=== PATIENT | male | born 1955 | race Caucasian/White ===

== ENCOUNTER 2018-05-24 07:44 | Day surgery (SDC) | payer OTHER ==
[2018-03-31 15:20] VITALS: BMI 31.0
[~2018-05-24 07:44] MED LIST: LACTATED RINGERS 1,000 ML IV SCH; LIDOCAINE 1% 20 ML VIAL (10MG/ML) FOR IV START INTRADERMA PRN
[2018-05-24 08:24] VITALS: RESP 16; TEMP 97.2
[2018-05-24 08:32] LABS: Glucose,Whole Blood 149 mg/dL (75-99)
[2018-05-24] MEDS ORDERED: LIDOCAINE 1% INJ 10MG/ML (20 ML MDV) ONE (08:35)
[2018-05-24] MEDS ORDERED: PROPOFOL 10 MG/ML 20 ML VIAL IV ONE (08:35)
--- NOTE | 2018-05-24 08:54 | P.PCN ---
Date of Procedure: 05/24/18 Procedure(s) Performed: BRIEF HISTORY: Patient is a 62-year-old pleasant white male, scheduled for an elective colonoscopy as a part of screening for colorectal neoplasia. PROCEDURE PERFORMED: Colonoscopy with snare polypectomy PREOPERATIVE DIAGNOSIS: Screening for colon cancer. IV sedation per Anesthesia. PROCEDURE: After informed consent was obtained, the patient, was brought into the endoscopy unit. IV sedation was administered by Anesthesia under continuous monitoring. Digital rectal examination was normal. Initially the Olympus CF- 160 flexible video colonoscope was then inserted in the rectum, gradually advanced into the cecum without any difficulty. Careful examination was performed as the scope was gradually being withdrawn. Ileocecal valve and the appendiceal orifice were visualized and appeared normal. Prep was excellent. Mucosa of the cecum appeared normal. In the transverse colon there was a 5 mm polyp that was removed by snare polypectomy., In the descending colon there was a #5 mm polyp that was removed by snare polypectomy. In the sigmoid colon there were 2 polyps measuring 3 mm and 5 and admitted is both of which were removed by snare polypectomy. Rest of the descending colon, sigmoid colon, and rectum appeared normal. Retroflexion was performed in the rectum and no lesions were seen. The patient tolerated the procedure well. IMPRESSION: 5 mm transverse colon polyp status post polypectomy 5 mm 2 descending colon polyps status post polypectomy 3 mm and 5 mm sigmoid colon polyp status post polypectomy RECOMMENDATIONS: Findings of this examination were discussed with the patient as well as his family. He was advised to follow with the biopsy results. If the biopsy shows adenoma, he can have a repeat colonoscopy in 3 years.
[2018-05-24 09:15] VITALS: BP 130/88; PULSE 77
[2018-05-24 09:20] LABS: Glucose,Whole Blood 147 mg/dL (75-99)
== END 2018-05-24 09:44 | disposition home or self-care (01) ==
LOC: ORWHC2ENDO 07:44
PROVIDERS: ATTEND Internal Medicine Gastroenterology
DX: Z12.11 Encounter for screening for malignant neoplasm of colon (principal); D12.2 Benign neoplasm of ascending colon; D12.3 Benign neoplasm of transverse colon; K63.5 Polyp of colon; E11.9 Type 2 diabetes mellitus without complications; E78.5 Hyperlipidemia, unspecified; F17.210 Nicotine dependence, cigarettes, uncomplicated; Z79.4 Long term (current) use of insulin; Z79.899 Other long term (current) drug therapy
CPT/HCPCS: 88305; 45385; J2001; J2704

== ENCOUNTER → 2020-06-26 | Outpatient (CLI) | payer OTHER ==
--- NOTE | 2020-06-26 12:59 | US ---
EXAMINATION TYPE: US abdomen complete DATE OF EXAM: 06/26/2020 COMPARISON: NONE CLINICAL HISTORY: ABN LFT's R94.5. Abnormal LFT's, GB removed EXAM MEASUREMENTS: Liver Length: 18.9 cm CBD: 0.7 cm Spleen: 10.6 cm Right Kidney: 10.2 x 4.8 x 5.7 cm Left Kidney: 11.2 x 6.1 x 5.2 cm Pancreas: wnl, tail obscured by overlying bowel gas Liver: Enlarged, heterogeneous, difficult to penetrate Gallbladder: Surgically absent Evidence for sonographic Prasad's sign: No CBD: wnl Spleen: wnl Right Kidney: wnl Left Kidney: Hypoechoic lesion mid= 1.3 x 1.3 x 1.0 cm Upper IVC: Difficult to visualize Abd Aorta: Obscured by overlying bowel gas The intrahepatic portion of the IVC and proximal abdominal aorta are within normal limits. Common bi le duct is unremarkable. The visualized portions of the pancreas are homogenous. The spleen is unre markable. Kidneys are symmetric and free of hydronephrosis. No renal lesions are seen. IMPRESSION: Abdominal wall underlying fatty hepatic infiltration.
== END | disposition home or self-care (01) ==
LOC: RADUSWWP 12:20
DX: K76.0 Fatty (change of) liver, not elsewhere classified (principal)
CPT/HCPCS: 76700

== ENCOUNTER → 2020-06-26 | Outpatient (CLI) | payer OTHER ==
--- NOTE | 2020-06-26 14:01 | CTL ---
EXAMINATION TYPE: CT Low Dose Lung DATE OF EXAM ORDERED: 06/26/2020 HISTORY: 64-year-old male Personal history of tobacco use. Lung cancer screening CT DLP: [address] CTDI: 2.33 mGy Automated exposure control for dose reduction was used. SCREENING VISIT: Baseline COMPARISON: None TECHNIQUE: Low dose computed tomography scan was performed through the chest at 1 mm thick sections a nd reconstructed images in the coronal and sagittal plane. CT DIAGNOSTIC QUALITY: Satisfactory FINDINGS: Heart normal size without pericardial effusion. Some scattered three-vessel coronary calcifications a re present. Aorta normal caliber with bovine configuration to the aortic arch and additional direct takeoff of a nondominant left vertebral artery directly from the aortic arch. No thoracic lymphadenopathy by CT size criteria. Mild diffuse bronchial wall thickening. Mild hazy dependent atelectasis. No consolidation or pleural effusion. No suspicious pulmonary nodule or mass. Visualized upper abdomen shows no gross abnormality. Extreme posterior costophrenic angles are exclud ed from view. Bones: Some degenerative changes at the right shoulder. Anterior endplate spondylosis lower thoracic spine. IMPRESSION: 1. LungRADS 1 - negative. No suspicious pulmonary nodule or mass. 2. Mild diffuse bronchial wall thickening can be seen with bronchitis or chronic asthma. 3. Mild three-vessel coronary artery calcifications. RECOMMENDATION: 1. Continue annual low-dose lung cancer screening CT. 2. Smoking cessation.
== END | disposition home or self-care (01) ==
LOC: RADCTMAIN 13:14
DX: Z12.2 Encounter for screening for malignant neoplasm of respiratory organs (principal); J98.4 Other disorders of lung; I25.10 Atherosclerotic heart disease of native coronary artery without angina pectoris; F17.210 Nicotine dependence, cigarettes, uncomplicated
CPT/HCPCS: 71271

== ENCOUNTER → 2021-12-18 | Outpatient (CLI) | payer OTHER ==
--- NOTE | 2021-12-18 07:03 | CTL ---
EXAMINATION TYPE: CT Low Dose Lung DATE OF EXAM ORDERED: 12/18/2021 COMPARISON: 06/26/2020 HISTORY: . Low Dose CT Lung Screening CT DLP: 121.[address] CTDI: 3.4 mGy IV CONTRAST USED: None. SCREENING VISIT: First visit COMPARISON: None. TECHNIQUE: Low dose computed tomography scan was performed through the chest at 1 millimeter thick se ctions and reconstructed images in the coronal plane at [address] DIAGNOSTIC QUALITY: Satisfactory FINDINGS: LUNG NODULES: Not presentLeft lung: no nodules identified.Right lung: no nodules identified. LUNGS: COPD: Severity: None Fibrosis: Severity:None Lymph nodes: None Other findings: None RIGHT PLEURAL SPACE: Effusion: None Calcification: None Thickening: None Pneumothorax: None LEFT PLEURAL SPACE: Effusion: None Calcification: None Thickening: None Pneumothorax: None HEART: Heart Size: Mildly enlarged Coronary calcification: Moderate Pericardial effusion: None OTHER FINDINGS: Upper abdomen: No significant abnormality Bony thorax: Degenerative changes Supraclavicular region: No significant abnormalityOther: No significant abnormalityI IMPRESSION: 1. CT lung RADS category 1 negative. No suspicious pulmonary nodule or mass identified. 2. Coronary artery calcifications as noted. FOLLOW UP CT CHEST RECOMMENDATION: Follow-up screening in one year. Smoking cessation recommended.
== END | disposition home or self-care (01) ==
LOC: RADCTMAIN 06:16
PROVIDERS: ATTEND Nurse Practitioner Acute Care
DX: Z12.2 Encounter for screening for malignant neoplasm of respiratory organs (principal); Z87.891 Personal history of nicotine dependence
CPT/HCPCS: 71271

== ENCOUNTER 2022-04-14 07:19 | Day surgery (SDC) | payer OTHER ==
[2022-04-12 14:47] VITALS: BMI 31.0
[~2022-04-14 07:19] MED LIST changes: +LIDOCAINE 1% (10MG/ML) FOR IV START INTRADERMA PRN; -LIDOCAINE 1% 20 ML VIAL (10MG/ML) FOR IV START INTRADERMA PRN; +ONDANSETRON 4 MG/2 ML VIAL IVP PRN
[2022-04-14] MEDS ORDERED: LACTATED RINGERS 1,000 ML IV ONE (07:51)
[2022-04-14 08:00] LABS: Glucose,Whole Blood 191 mg/dL (70-110)
[2022-04-14 08:05] VITALS: TEMP 97.8
[2022-04-14] MEDS ORDERED: PROPOFOL 10 MG/ML 20 ML VIAL IV ONE (08:34)
--- NOTE | 2022-04-14 08:52 | P.PCN ---
Date of Procedure: 04/14/22 Procedure(s) Performed: BRIEF HISTORY: Patient is a 66-year-old pleasant white male scheduled for an elective colonoscopy as a part of the lesion of prior history of colon polyps. His last coloscopy was 3 years ago and was noted to have a tubular adenoma. PROCEDURE PERFORMED: Colonoscopy with snare polypectomy. PREOPERATIVE DIAGNOSIS: History of colon polyps. IV sedation per Anesthesia. PROCEDURE: After informed consent was obtained, the patient, was brought into the endoscopy unit. IV sedation was administered by Anesthesia under continuous monitoring. Digital rectal examination was normal. Initially the Olympus CF-160 flexible video colonoscope was then inserted in the rectum, gradually advanced into the cecum without any difficulty. Careful examination was performed as the scope was gradually being withdrawn. Ileocecal valve and the appendiceal orifice were visualized and appeared normal. Prep was excellent. Mucosa of the cecum appeared normal. In the ascending colon there was a 5 limited) 7 mm sessile polyp removed by snare polypectomy. Rest of the, ascending colon, transverse colon, descending colon, appeared normal. In the sigmoid: There was a 4 mm sessile polyp removed by snare polypectomy. Rest of the sigmoid colon, and rectum appeared normal. Retroflexion was performed in the rectum and no lesions were seen. The patient tolerated the procedure well. IMPRESSION: 5 mm and 7 mm ascending colon polyp status post polypectomy 4 mm sigmoid: Polyp status post polypectomy RECOMMENDATIONS: Findings of this examination were discussed with the patient as well as a family. He was advised to follow with the biopsy results. If the biopsy reveals adenoma he can have a repeat colonoscopy in 5 years..
[2022-04-14 09:00] VITALS: RESP 16
[2022-04-14 09:13] VITALS: BP 118/77; PULSE 86
== END 2022-04-14 10:49 | disposition home or self-care (01) ==
LOC: ORWHC2ENDO 07:19
PROVIDERS: ATTEND Internal Medicine Gastroenterology
DX: Z12.11 Encounter for screening for malignant neoplasm of colon (principal); D12.2 Benign neoplasm of ascending colon; D12.5 Benign neoplasm of sigmoid colon; Z87.19 Personal history of other diseases of the digestive system
CPT/HCPCS: 88305; 45385; J2704

== ENCOUNTER → 2023-01-25 | Outpatient (CLI) | payer OTHER ==
--- NOTE | 2023-01-25 11:27 | CTL ---
EXAMINATION TYPE: CT Low Dose Lung DATE OF EXAM ORDERED: 01/25/2023 HISTORY: 67-year-old male, current smoker with 40 pack-year history. Z87.891. Lung cancer screening CT DLP: 134.[address] CTDI: 3.5 mGy Automated exposure control for dose reduction was used. SCREENING VISIT: Annual follow-up COMPARISON: 12/18/2021 TECHNIQUE: Low dose computed tomography scan was performed through the chest with coronal and sagitta l reconstructions. CT DIAGNOSTIC QUALITY: Satisfactory FINDINGS: Heart normal size without pericardial effusion. LAD and RCA coronary calcifications are present. Ascending aorta ectatic at 3.7 cm. Fibroid direct takeoff of the nondominant left vertebral artery di rectly from the aortic arch as well as bovine configuration to the aortic arch. No thoracic lymphadenopathy by CT size criteria. Mild diffuse bronchial wall thickening. Minimal emphysematous change. No consolidation or pleural eff usion. * Some clustered pulmonary nodules measuring up to 5 mm anterior right midlung, images 129, 130, and 137 remain unchanged. * 4 mm lateral right lower lobe pulmonary nodule, axial image 173 is unchanged. * 4 mm anterior left midlung pulmonary nodule, axial image 113 is unchanged. Visualized upper abdomen shows cholecystectomy clips. Bones: Anterior endplate spondylosis lower thoracic spine. IMPRESSION: 1. LungRADS 2, benign. A few scattered 5 mm and smaller pulmonary nodules remain unchanged. 2. COPD with minimal emphysema. Recommend smoking cessation. CT LUNG RAD AND CT CHEST RECOMMENDATION: Lung-Rad 2 Benign Appearance or Behavior: Continue annual sc reening with LDCT in 12 months. S Modifier (other clinically significant findings): None
== END | disposition home or self-care (01) ==
LOC: RADCTMAIN 07:52
DX: Z12.2 Encounter for screening for malignant neoplasm of respiratory organs (principal); F17.210 Nicotine dependence, cigarettes, uncomplicated; J43.9 Emphysema, unspecified; R91.8 Other nonspecific abnormal finding of lung field
CPT/HCPCS: 71271

== ENCOUNTER → 2024-03-12 | Outpatient (CLI) | payer OTHER ==
--- NOTE | 2024-03-12 09:15 | CTL ---
EXAMINATION TYPE: CT Low Dose Lung DATE OF EXAM: 03/12/2024 6:51 AM COMPARISON: 01/25/2023 CLINICAL INDICATION: Male, 68 years old with history of F17.210 nicotine dependance, smoker, History of tobacco use. Current smoker with 70 pack-year history TECHNIQUE: Low dose computed tomography scan was performed through the chest at 1 mm thick sections a nd reconstructed images in multiple planes at 1 mm and [address] DLP: 134.4 mGycm, CT CTDI: 3.6 mGy, Automated exposure control for dose reduction was used. CT DIAGNOSTIC QUALITY: Satisfactory FINDINGS: The heart is normal size with trace anterior pericardial fluid. Scattered LAD and RCA coronary artery calcifications are present. Ectatic ascending aorta 3.7 cm, unchanged. Mild atherosclerotic arch calcifications with borderline c onfiguration to the aortic arch and additional nondominant left vertebral artery taking off from the aortic arch. No thoracic lymphadenopathy by CT size criteria. Lungs show mild diffuse bronchial wall thickening. There may be some subtle centrilobular groundglass nodularity in the upper and midlungs that may be seen with smoking related respiratory bronchiolitis . No consolidation or pleural effusion. A few scattered 5 mm and smaller pulmonary nodules at the mid lungs, right greater than left remain u nchanged compatible with a benign etiology. No new suspicious pulmonary nodule. Visualized upper abdomen shows no gross abnormality. Bones: Additional lower thoracic spine. IMPRESSION: 1. LungRADS 2, benign. A few scattered 5 mm and smaller pulmonary nodules are unchanged. 2. Mild bronchial wall thickening suggests underlying bronchitis. 3. Some LAD and RCA coronary artery calcifications. CT LUNG RAD AND CT CHEST RECOMMENDATION: Lung-Rad 2 Benign Appearance or Behavior: Continue annual sc reening with LDCT in 12 months. S Modifier (other clinically significant findings): None [facility], , 03/12/2024 9:12 AM
== END | disposition home or self-care (01) ==
LOC: RADCTMAIN 05:57
PROVIDERS: ATTEND Internal Medicine Pulmonary Disease
DX: I25.10 Atherosclerotic heart disease of native coronary artery without angina pectoris (principal); Z12.2 Encounter for screening for malignant neoplasm of respiratory organs; F17.210 Nicotine dependence, cigarettes, uncomplicated; R91.8 Other nonspecific abnormal finding of lung field
CPT/HCPCS: 71271